=== PATIENT | female | born 1985 | race Caucasian/White ===

== ENCOUNTER 2022-04-27 00:26 | Emergency (ER) | payer MEDICAID ==
[2022-04-27 00:32] VITALS: BP 142/88; PULSE 85; RESP 16
--- NOTE | 2022-04-27 01:02 | XR ---
EXAMINATION TYPE: XR hand complete LT DATE OF EXAM: 04/27/2022 COMPARISON: NONE HISTORY: Pain TECHNIQUE: 3 views FINDINGS: There is nondisplaced oblique fracture of the distal shaft of the fifth metacarpal. No disl ocation. The fingers are intact. Carpal bones are intact. IMPRESSION: Nondisplaced distal fifth metacarpal fracture.
[2022-04-27] MEDS ORDERED: KETOROLAC 15 MG/ML 1 ML VIAL IM STA (01:11)
--- NOTE | 2022-04-27 01:32 | ED ---
General Adult HPI - General Chief complaint: Extremity Injury, Upper Stated complaint: LT hand injury Time Seen by Provider: 04/27/22 00:35 Source: patient, RN notes reviewed, old records reviewed Mode of arrival: ambulatory Limitations: no limitations - History of Present Illness Initial comments: Patient is a 36-year-old female who presents emergency Department complaining of a left hand injury. Patient states that last she struck her hand on the couch in an awkward angle and began having pain in the left hand. Was bruised and swollen at that time. She is been working normally was not evaluated. 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 She presents for x-rays and evaluation. Denies any other injuries. Denies any numbness or loss of sensation the left hand. Has no other acute complaints at this time. - Related Data Allergies Allergy/AdvReac Type Severity Reaction Status Date / Time No Known Allergies Allergy Verified 04/27/22 00:29 Review of Systems ROS Statement: Those systems with pertinent positive or pertinent negative responses have been documented in the HPI. Review of Systems: CONST: Denies fever EYES: Denies blurry vision ENT: Denies nasal congestion C/V: Denies Chest pain RESP: Denies shortness of breath GI: Denies abdominal pain : Denies dysuria SKIN: Denies rash. MSK: Endorses left hand pain NEURO: Denies headache ROS Other: All systems not noted in ROS Statement are negative. General Exam - General Exam Comments Initial Comments: General: Appears in no acute distress. HEAD: Normal with no signs of head trauma. EYES: EOMI ENT: Hearing grossly intact RESPIRATORY: No respiratory distress. C/V: Peripheral pulses 2+ and intact throughout. ABD: Nondistended EXT: Left fifth metacarpal tenderness to palpation. Swelling and bruising at the site. Normal range of motion of the left wrist although it is painful. Normal range of motion of the fingers although it is painful on the left hand. SKIN: No rashes or lesions observed on exposed skin. NEURO: Alert and oriented 4. No focal deficits. Limitations: no limitations Course Vital Signs 04/27/22 00:29 Pulse Rate 85 Respiratory 16 Rate Blood Pressure 142/88 O2 Sat by Pulse 97 Oximetry Medical Decision Making - Medical Decision Making Based on the patient's presentation and physical exam, there is concern for possible bony trochanteric injury the patient's left hand. Injury originally occurred on . She is neurovascular intact in the left hand. No other injuries. X-rays were obtained after the patient received a dose of Toradol. X-ray shows a nondisplaced distal fifth metacarpal fracture. I updated the patient. She was placed in an ulnar gutter splint and is neurovascularly intact following splinting. I discussed with the patient that we will be having her follow-up with orthopedic surgery. She was in agreement this plan. Strict return precautions were discussed. She declines anything other than [id number] analgesia medication at this time. I instructed the patient to follow up with their PCP in the next 1-3 days. I p rovided contact information for follow up with [facility]. I explained that the patient should return to the emergency department if they experience any worsening symptoms. Strict return precautions were discussed with the patient. The patient expressed understanding of these instructions. I answered all questions that the patient had. The patient was discharged home in good condition with their prescriptions and follow up information. Was pt. sent in by a medical professional or institution (, PA, [employer], urgent care, hospital, or fpc...) When possible be specific @ -No Did you speak to anyone other than the patient for history (EMS, parent, family, police, friend...)? What history was obtained from this source @ -No Did you review nursing and triage notes (agree or disagree)? Why? @ -I reviewed and agree with nursing and triage notes Were old charts reviewed (outside hosp., previous admission, EMS record, old EKG, old radiological studies, urgent care reports/EKG's, fpc records)? Report findings @ -No old charts were reviewed Differential Diagnosis (chest pain, altered mental status, abdominal pain women, abdominal pain men, vaginal bleeding, weakness, fever, dyspnea, syncope, h eadache, dizziness, GI bleed, back pain, seizure, CVA, palpatations, mental health)? @ -not applicable EKG interpreted by me (3pts min.). @ -None done X-rays interpreted by me (1pt min.). @ -Left hand x-ray shows a nondisplaced fracture of the left fifth metacarpal CT interpreted by me (1pt min.). @ -None done U/S interpreted by me (1pt. min.). @ -None done What testing was considered but not performed or refused? (CT, X-rays, U/S, labs)? Why? @ -None What meds were considered but not given or refused? Why? @ -None Did you discuss the management of the patient with other professionals (professionals i.e. DrJacob, PA, [employer], lab, RT, psych nurse, social worker clinical, finisher plate, teacher, interface control officer, case folder)? Give summary @ -No Was smoking cessation discussed for >3mins.? @ -No Was critical care preformed (if so, how long)? @ -No Were there social determinants of health that impacted care today? How? (Homelessness, low income, unemployed, alcoholism, drug addiction, transportation, low edu. Level, literacy, decrease access to med. care, correction, rehab)? @ -No Was there de-escalation of care discussed even if they declined (Discuss DNR or withdrawal of care, Hospice)? DNR status @ -No What co-morbidities impacted this encounter? (DM, HTN, Smoking, COPD, CAD, Cancer, CVA, ARF, Chemo, Hep., AIDS, mental health diagnosis, sleep apnea, mo rbid obesity)? @ -None Was patient admitted / discharged? Hospital course, mention meds given and route, prescriptions, significant lab abnormalities, going to OR and other pertinent info. @ -Discharged home with orthopedic surgery follow-up. See above for ED course. Undiagnosed new problem with uncertain prognosis? @ -No Drug Therapy requiring intensive monitoring for toxicity (Heparin, Nitro, Insulin, Cardizem)? @ -No Were any procedures done? @ -No Diagnosis/symptom? @ -Left fifth metacarpal bone fracture, nondisplaced Acute, or Chronic, or Acute on Chronic? @ -Acute Uncomplicated (without systemic symptoms) or Complicated (systemic symptoms)? @ -Uncomplicated Side effects of treatment? @ -No Exacerbation, Progression, or Severe Exacerbation? @ -No Poses a threat to life or bodily function? How? (Chest pain, [place], [place], pneumonia, PE, COPD, DKA, ARF, appy, cholecystitis, CVA, Diverticulitis, Homicidal, Suicidal, threat to staff... and all critical care pts) @ -No Disposition Clinical Impression: Fracture of fifth metacarpal bone of left hand Disposition: HOME SELF-CARE Condition: Good Instructions (If sedation given, give patient instructions): Hand Fracture (ED) Is patient prescribed a controlled substance at d/c from ED?: No Referrals: Glynn Enciso MD [Primary Care Provider] - 1-2 days Uriel Gutierrez DO [Doctor of Osteopathic Medicine] - 1-2 days Time of Disposition: 01:25
== END 2022-04-27 01:43 | disposition home or self-care (01) ==
LOC: EC 00:26
DX: S62.357A Nondisplaced fracture of shaft of fifth metacarpal bone, left hand, initial encounter for closed fracture (principal); W22.8XXA Striking against or struck by other objects, initial encounter
CPT/HCPCS: 29125; 99283; 96372; 73130; J1885